=== PATIENT | male | born 1995 | race Caucasian/White ===

== ENCOUNTER 2017-04-16 09:59 | Emergency (ER) | payer OTHER ==
[~2017-04-16] VITALS: Ht 182.9 cm; Wt 115.2 kg
[2017-04-16] MEDS ORDERED: DICLOFENAC SODI50 MG PO (15:32)
== END 2017-04-16 15:55 | disposition home or self-care (01) ==
LOC: ER 09:59
DX: M54.6 Pain in thoracic spine (principal)